=== PATIENT | female | born 1990 | race Caucasian/White ===

== ENCOUNTER 2020-05-27 09:00 | Inpatient (IN) | payer BC ==
[2020-06-04 15:23] VITALS: BMI 27.0
--- NOTE | 2020-06-05 11:03 | HP ---
HISTORY AND PHYSICAL This is a 30-year-old 0, who presents with a history of bilateral ovarian cysts, likely endometriomas. She received a depo Lupron injections x3; however, the cysts have remained and not decreased in size. She has occasional crampy lower pelvic pain and fullness, but otherwise review of systems is negative. She presents today for exploratory laparotomy, bilateral ovarian cystectomy. My plan is to use Interceed to aid in ovarian healing and prevention of scar tissue. PAST MEDICAL HISTORY: Significant for anemia. PAST SURGICAL HISTORY: Left knee surgery 2019, melanoma excision in 2019. Waldo teeth extracted. CURRENT MEDICATIONS: Ibuprofen 800 mg tablets as needed. Depo-Lupron x3. ALLERGIES: None known. FAMILY HISTORY: Significant for hypertension, polycystic ovaries, uterine cancer, melanoma, breast cancer. 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 Patient is single. PHYSICAL EXAM: Patient is 5 foot 7.75 inches, 172 pounds, BMI 26,. 99% O2 saturation. HEENT: Exam reveals good dentition, no thyromegaly, no cervical lymphadenopathy. Breasts are bilaterally symmetric, with no skin changes. No nipple discharge or axillary adenopathy. No discernible lesions or masses. CHEST: Clear to auscultation in all baker, anteriorly and posteriorly. CARDIAC: Exam reveals regular rate and rhythm with no murmur, click, or rub. ABDOMEN: Soft and nontender, with fullness, bilateral lower quadrants. No rebound or guarding. There are active bowel sounds. No CVA tenderness. EXTREMITIES: Reveal no edema, good peripheral pulses, normal range of motion. Pelvic exam reveals a fullness in the right adnexal region consistent with 6.06 cm cyst, with mild tenderness in the left lower quadrant as well. Uterus is small, mobile, anteverted, anteflexed, within normal limits. Rectal exam reveals fit negative stool, good sphincter tone, no masses. IMPRESSION: Bilateral complex ovarian cysts, right measuring 6.06 cm composite, left measuring 3.18 cm composite, both with internal echoes and septation despite Depo-Lupron injections x3. Possible endometrioma, possible dermoid cyst. PLAN: We will proceed with exploratory laparotomy and bilateral ovarian cystectomies. Patient does consent to oophorectomy if necessary; however, my intention would be to remove the cyst and repair the ovarian cortex bilaterally. We will use Interceed as well. The risks of surgery including bleeding, infection, perforation or damage to bowel, bladder, ureters, blood vessels are all discussed. The risk of anesthesia, aspiration, or even have also been reviewed. All questions answered. MMODL / IJN: [id number] /
[2020-06-10] MEDS ORDERED: SCOPOLAMINE 1.5MG/72HR PATCH TRANSDERM ONE (05:40)
[2020-06-10] MEDS ORDERED: ONDANSETRON 4 MG/2 ML VIAL IVP ONE (05:40)
[2020-06-10] MEDS ORDERED: MIDAZOLAM 2 MG/2 ML VIAL IV PRN (05:40)
[2020-06-10] MEDS ORDERED: DEXAMETHASONE SOD PHOSPHATE 10 MG/ML 1 ML VIAL IV ONE (05:40)
[2020-06-10] MEDS ORDERED: LIDOCAINE 1% (10MG/ML) FOR IV START INTRADERMA ONE (08:31)
[2020-06-10] MEDS: LACTATED RINGERS 1,000 ML IV SCH (08:33)
[2020-06-10] MEDS ORDERED: MIDAZOLAM 2 MG/2 ML VIAL ONE (09:39)
[2020-06-10] MEDS ORDERED: fentaNYL (PF) 50 MCG/ML 2 ML AMP ONE (09:39)
[2020-06-10] MEDS ORDERED: HYDROmorphone (PF) 1 MG/ML ONE (09:39)
[2020-06-10] MEDS ORDERED: GLYCOPYRROLATE 0.2 MG/ML 2 ML VIAL ONE (09:39)
[2020-06-10] MEDS ORDERED: SUCCINYLCHOLINE CHLORIDE 100 MG/5 ML SYR IV ONE (09:39)
[2020-06-10] MEDS ORDERED: LIDOCAINE 1% INJ 10MG/ML (20 ML MDV) ONE (09:39)
[2020-06-10] MEDS ORDERED: ROCURONIUM 10 MG/ML (10 ML VIAL) IV ONE (09:39)
[2020-06-10] MEDS ORDERED: PROPOFOL 10 MG/ML 20 ML VIAL IV ONE (09:39)
[2020-06-10] MEDS ORDERED: NEOSTIGMINE 1 MG/ML 10 ML VIAL ONE (09:39)
[2020-06-10] MEDS ORDERED: CELLULOSE,OXIDIZED 1 EACH EACH MISCELLANE ONE (10:26)
[2020-06-10] MEDS ORDERED: LACTATED RINGERS 1,000 ML IV ONE (10:27)
[2020-06-10] MEDS ORDERED: metroNIDAZOLE-NS PMX 500 MG in SALINE 1 100ML.BAG IVPB STA (10:51)
[2020-06-10] MEDS ORDERED: ACETAMINOPHEN IV (For NPO) 1,000 MG in EMPTY BAG 1 BAG IVPB STA (10:51)
[2020-06-10] MEDS: HYDROmorphone 0.5 MG/0.5 ML SYRINGE IVP PRN ×5 (11:19→12:05)
[2020-06-10] MEDS ORDERED: diphenhydrAMINE 50 MG/ML 1 ML VIAL IVP PRN (11:26)
[2020-06-10] MEDS ORDERED: Acetaminophen-Codeine 300-30mg TAB PO PRN (11:26)
[2020-06-10] MEDS ORDERED: SIMETHICONE 80 MG CHEWABLE PO PRN (11:26)
[2020-06-10] MEDS ORDERED: IBUPROFEN 600 MG TAB PO PRN (11:26)
[2020-06-10] MEDS ORDERED: ONDANSETRON 4 MG/2 ML VIAL IVP PRN (11:26)
[2020-06-10] MEDS ORDERED: METOCLOPRAMIDE 5 MG/ML 2 ML VIAL IVP PRN (11:26)
--- NOTE | 2020-06-10 11:26 | P.OP ---
Date of Procedure: 06/10/20 Preoperative Diagnosis: Bilateral complex ovarian masses Postoperative Diagnosis: Bilateral pelvic endometriomas, diffuse pelvic and abdominal endometriosis, diffuse abdominal and pelvic adhesions. Procedure(s) Performed: Exploratory laparotomy, excision right endometrioma, cautery left endometrioma, reconstruction right ovary, adhesio lysis Anesthesia: JERONIMO Surgeon: Meri Doss Alemite Operator #1: Nalini Tam Estimated Blood Loss (ml): 100 IV fluids (ml): 900 Urine output (ml): 100 Pathology: other (Right ovarian endometrioma) Condition: stable Disposition: PACU Operative Findings: Diffuse abdominal and pelvic endometriosis, including endometriotic implants on the small bowel and appendix. Diffuse pelvic adhesions. Large 6-8 cm complex right endometrioma, smaller left ovarian endometrioma. Description of Procedure: Patient is brought to the operating room where a general anesthetic is administered without difficulty. Antibiotics were given prophylactically. The appropriate timeout was performed to assure proper patient and procedural identification. Urine hCG is negative. Patient is placed in the dorsal supine position in the abdomen is prepped and draped in usual sterile fashion, Membreno catheter placed to direct drainage. A low transverse skin incision is made in this is carried down to the subcutaneous tissue which is approximately 2 cm deep. Fascia is isolated, scored, extended bilaterally with curved Wallace scissors. Peritoneum is next identified and incised, there is no bowel or bladder involvement. Abdominal washings are taken and set aside. The O'Jeff- O'Melgar retractors placed in the abdomen is gently packed with sterile sponges. There is a large right 6-8 cm endometrioma noted that is tucked into the posterior cul-de-sac deep in the pelvis. This is carefully dissected with Metzenbaum scissors and DeBakey forceps. The ovarian cortex is opened with a scalpel and the endometrium is shelled out. Electrocautery is used at the base of the cortex. The ovary was reconstructed with 3-0 Vicryl suture for excellent reapproximation. The right fallopian tube appears inflamed but otherwise uninvolved. There is endometriosis noted over the surface of the uterus, along with implants on the small bowel and appendix. The left ovarian endometrioma is now identified, it is also deep in the pelvic cul-de-sac. It is mobilized with careful adhesio lysis. Electrocautery is used to debulk the endometriosis on this ovary. Hemostasis is very good. Again the tube is uninvolved, however does appear inflamed. Electrocautery is used on the superficial endometriotic implants of the uterus and bilateral pelvic sidewalls, where safe and appropriate. The pelvis is now generously irrigated with sterile saline. The pelvis is clean and dry. The ovaries are gently wrapped with Interceed and placed back into the pelvic cavity. The peritoneum was allowed to close by secondary intention. Fascia is closed in a running stitch of 3-0 Vicryl suture with over ligation in the midline. Subcutaneous tissue is irrigated, and noted to be clean and dry. It is reapproximated with 3-0 Vicryl in a running fashion. 4-0 undyed Monocryl is used subcuticularly for final skin closure. Steri-Strips and Mastisol are applied to the wound. Patient is brought back to the recovery room in stable condition with a blood pressure 128/74, pulse 93, 98% O2 saturation. She is given O firm with prior to leaving the OR.
[2020-06-10] MEDS: KETOROLAC 15 MG/ML 1 ML VIAL IVP PRN (13:41)
[2020-06-11] MEDS: LACTATED RINGERS 1,000 ML IV SCH (04:03)
[2020-06-11] MEDS: KETOROLAC 15 MG/ML 1 ML VIAL IVP PRN (04:43)
--- NOTE | 2020-06-11 07:51 | P.DS ---
Providers Date of admission: 06/10/20 07:05 Expected date of discharge: 06/11/20 Attending physician: Meri Doss Primary care physician: Stated None Hospital Course: This is a 30-year-old white female 0 who presented with bilateral complex ovarian masses. She was treated with Depo-Lupron times one. The preliminary diagnosis was that of endometriosis. Patient elected to have surgical debulking of the disease and was therefore admitted for surgery. Please see dictated history and physical for details. She underwent an exploratory laparotomy, debulking of endometriosis including right endometrioma excision, repair of the right ovary, cauterization of endometriosis on the left ovary and pelvis including uterine serosa. Endometriosis was also noted on the small bowel and appendix, please see dictated operative note for details. The ovaries were wrapped with Interceed and left in situ. This morning the patient is doing well. She is voiding, ambulate in, passing flatus without difficulty. Vital signs are stable and she is afebrile. Incision is clean and dry, intact, Steri-Strips applied. Patient is not complaining of pain, and overall is judged to be in very good condition for discharge home. She will follow-up with me in the office in 2 weeks. I have reminded her no intercourse, tampons or douching. She will use [id number] Advil or Aleve, or Motrin as needed for pain. She will call with any fevers shakes or chills, foul smelling or copious lochia, with the passage of large blood clots, with any pain not alleviated by [id number] products, or indeed with any concerns. My plan would be for an additional Depo-Lupron shot to clean out the residual endometriosis noted intraoperatively. We will attempt to arrange this Assessment: Doing well postoperative day #1 Patient Condition at Discharge: Good Plan - Discharge Summary Discharge Rx Participant: No New Discharge Prescriptions: No Action Cholecalciferol [Vitamin D3 (25 Mcg = 1000 Iu)] 1,000 unit PO DAILY Ascorbic Acid [Vitamin C] 500 mg PO DAILY Multivitamins, Thera [Multivitamin (formulary)] 1 tab PO DAILY Discharge Medication List Ascorbic Acid [Vitamin C] 500 mg PO DAILY 06/04/20 [History] Cholecalciferol [Vitamin D3 (25 Mcg = 1000 Iu)] 1,000 unit PO DAILY 06/04/20 [H istory] Multivitamins, Thera [Multivitamin (formulary)] 1 tab PO DAILY 06/04/20 [History] Follow up Appointment(s)/Referral(s): Meri Doss MD [STAFF PHYSICIAN] - 2 Weeks Discharge Disposition: HOME SELF-CARE
[2020-06-11 08:39] VITALS: BP 108/69; PULSE 70; RESP 16; TEMP 98
== END 2020-06-11 10:09 | disposition home or self-care (01) | DRG 743 ==
LOC: 2ORMAIN 06-10 07:05 → 6PED 06-10 11:18
PROVIDERS: ADMIT Obstetrics & Gynecology; ATTEND Obstetrics & Gynecology
PROC: 0U510ZZ Destruction of Left Ovary, Open Approach (ICD-10-PCS; principal; 2020-06-10 09:05)
PROC: 0DNW0ZZ Release Peritoneum, Open Approach (ICD-10-PCS; principal; 2020-06-10 09:05)
PROC: 0UB00ZZ Excision of Right Ovary, Open Approach (ICD-10-PCS; principal; 2020-06-10 09:05)
DX: N80.1 Endometriosis of ovary (principal); N80.3 Endometriosis of pelvic peritoneum; N80.5 Endometriosis of intestine; N83.202 Unspecified ovarian cyst, left side; N83.201 Unspecified ovarian cyst, right side; N73.6 Female pelvic peritoneal adhesions (postinfective); F17.210 Nicotine dependence, cigarettes, uncomplicated; Z80.49 Family history of malignant neoplasm of other genital organs; Z80.3 Family history of malignant neoplasm of breast; Z82.49 Family history of ischemic heart disease and other diseases of the circulatory system; Z80.8 Family history of malignant neoplasm of other organs or systems; Z85.820 Personal history of malignant melanoma of skin; Z91.040 Latex allergy status
CPT/HCPCS: 81025; 86850; 86900; 86901; 88305

== ENCOUNTER → 2020-06-03 | Outpatient (CLI) | payer BC ==
[2020-06-03 11:51] LABS: Basophils % (A) 1 %; Eosinophils # (A) 0.1 k/uL (0-0.7); Eosinophils % (A) 3 %; HCT 36.6 % (34.0-46.0); HGB 11.9 gm/dL (11.4-16.0); Lymphocytes # (A) 2.4 k/uL (1.0-4.8); Lymphocytes % (A) 49 %; MCH 31.2 pg (25.0-35.0); MCHC 32.6 g/dL (31.0-37.0); MCV 95.9 fL (80.0-100.0); Mean Platelet Volume 7.5; Monocytes # (A) 0.2 k/uL (0-1.0); Monocytes % (A) 4 %; Neutrophils # (A) 1.9 k/uL (1.3-7.7); Neutrophils % (A) 40 %; Platelet Count 194 k/uL (150-450); RBC 3.82 m/uL (3.80-5.40); RDW 12.6 % (11.5-15.5); WBC 4.8 k/uL (3.8-10.6)
[2020-06-03 11:52] LABS: African American GFR (CKD) >90 (>60 ml/min/1.73 sqM); Anion Gap 6 mmol/L; Blood Urea Nitrogen 12 mg/dL (7-17); Calcium 9.6 mg/dL (8.4-10.2); Carbon Dioxide 28 mmol/L (22-30); Chloride 107 mmol/L (98-107); Glucose 99 mg/dL (74-99); Non-African American GFR(CKD) >90 (>60 ml/min/1.73 sqM); Sodium 141 mmol/L (137-145)
== END | disposition home or self-care (01) ==
LOC: LABPAT 10:34
PROVIDERS: ATTEND Obstetrics & Gynecology
DX: Z01.818 Encounter for other preprocedural examination (principal); N83.202 Unspecified ovarian cyst, left side; N83.201 Unspecified ovarian cyst, right side
CPT/HCPCS: 80048; 85025; 86850; 86900; 86901; 87086

== ENCOUNTER 2021-04-16 08:40 | Emergency (ER) | payer BC ==
[2021-04-16 08:45] VITALS: RESP 18; TEMP 98.1
[2021-04-16] MEDS ORDERED: SODIUM CHLORIDE 0.9% 2,000 ML IV STA (09:27)
[2021-04-16] MEDS ORDERED: diphenhydrAMINE 50 MG/ML 1 ML VIAL IVP STA (09:27)
[2021-04-16] MEDS ORDERED: METOCLOPRAMIDE 5 MG/ML 2 ML VIAL IVP STA (09:27)
[2021-04-16 09:59] LABS: Basophils % (A) 0 %; Eosinophils % (A) 0 %; HCT 33.9 % (34.0-46.0); HGB 11.8 gm/dL (11.4-16.0); Lymphocytes # (A) 1.3 k/uL (1.0-4.8); Lymphocytes % (A) 33 %; MCH 32.2 pg (25.0-35.0); MCHC 34.7 g/dL (31.0-37.0); MCV 92.7 fL (80.0-100.0); Mean Platelet Volume 8.3; Monocytes # (A) 0.2 k/uL (0-1.0); Monocytes % (A) 4 %; Neutrophils # (A) 2.4 k/uL (1.3-7.7); Neutrophils % (A) 60 %; Platelet Count 166 k/uL (150-450); RBC 3.66 m/uL (3.80-5.40); RDW 13.2 % (11.5-15.5)
--- NOTE | 2021-04-16 10:06 | ED ---
General Adult HPI - General Chief complaint: Nausea/Vomiting/Diarrhea Stated complaint: covid+, vomiting Time Seen by Provider: 04/16/21 08:54 Source: patient, RN notes reviewed Mode of arrival: ambulatory Limitations: no limitations - History of Present Illness Initial comments: This is a 31-year-old female presents emergency Department with chief complaint of COVID-19. Patient states she is been symptomatic for 1 week. Patient states she had nausea vomiting she had some diarrhea beginning but states that she cannot keep anything down states she feels weak no difficulty breathing she's had fevers chills body aches O significant headache currently no neck pain or neck stiffness patient has only known ALLERGY to latex no medication ALLERGIES. - Related Data Previous Rx's Medication Instructions Recorded Metoclopramide [Reglan] 10 mg PO TID PRN #15 tab 04/16/21 Allergies Allergy/AdvReac Type Severity Reaction Status Date / Time latex Allergy Rash/Hives Verified 04/16/21 09:47 Review of Systems ROS Statement: Those systems with pertinent positive or pertinent negative responses have been documented in the HPI. ROS Other: All systems not noted in ROS Statement are negative. Past Medical History Past Medical History: GERD/Reflux History of Any Multi-Drug Resistant Organisms: None Reported Past Surgical History: Orthopedic Surgery Additional Past Surgical History / Comment(s): Left knee surgery, cysts removed from ovaries Past Anesthesia/Blood Transfusion Reactions: Family History of Problems w/ Anesthesia, Postoperative Nausea & Vomiting (PONV) Additional Past Anesthesia/Blood Transfusion Reaction / Comment(s): Mom had postoperative nausea. Past Psychological History: No Psychological Hx Reported Smoking Status: Former smoker Past Alcohol Use History: None Reported Past Drug Use History: Marijuana - Past Family History Mother Family Medical History: No Reported History General Exam Limitations: no limitations General appearance: alert, in no apparent distress Head exam: Present: atraumatic, normocephalic, normal inspection Eye exam: Present: normal appearance, PERRL, EOMI. Absent: scleral icterus, conjunctival injection, periorbital swelling ENT exam: Present: normal exam, mucous membranes moist Neck exam: Present: normal inspection. Absent: tenderness, meningismus, lymphadenopathy Respiratory exam: Present: normal lung sounds bilaterally. Absent: respiratory distress, wheezes, rales, rhonchi, stridor Cardiovascular Exam: Present: regular rate, normal rhythm, normal heart sounds. Absent: systolic murmur, diastolic murmur, rubs, gallop, clicks GI/Abdominal exam: Present: soft, normal bowel sounds. Absent: distended, tenderness, guarding, rebound, rigid Back exam: Absent: CVA tenderness (R), CVA tenderness (L) Neurological exam: Present: alert Skin exam: Present: warm, dry, intact, normal color. Absent: rash Course Vital Signs 04/16/21 08:41 Temperature 98.1 F Pulse Rate 101 H Respiratory 18 Rate Blood Pressure 111/74 O2 Sat by Pulse 95 Oximetry Medical Decision Making - Medical Decision Making 31-year-old presented for nausea vomiting with COVID-19. Patient was given monoclonal bodies. Patient was hydrated feels greatly improved be discharged stable condition. - Lab Data Result diagrams: 04/16/21 09:37 04/16/21 09:37 Lab Results 04/16/21 04/16/21 04/16/21 Range/Units 09:37 09:37 09:37 WBC 4.0 (3.8-10.6) k/uL RBC 3.66 L (3.80-5.40) m/uL Hgb 11.8 (11.4-16.0) gm/dL Hct 33.9 L (34.0-46.0) % MCV 92.7 (80.0-100.0) fL MCH 32.2 (25.0-35.0) pg MCHC 34.7 (31.0-37.0) g/dL RDW 13.2 (11.5-15.5) % Plt Count 166 (150-450) k/uL MPV 8.3 Neutrophils % 60 % Lymphocytes % 33 % Monocytes % 4 % Eosinophils % 0 % Basophils % 0 % Neutrophils # 2.4 (1.3-7.7) k/uL Lymphocytes # 1.3 (1.0-4.8) k/uL Monocytes # 0.2 (0-1.0) k/uL Eosinophils # 0.0 (0-0.7) k/uL Basophils # 0.0 (0-0.2) k/uL Sodium (137-145) mmol/L Potassium (3.5-5.1) mmol/L Chloride (98-107) mmol/L Carbon Dioxide (22-30) mmol/L Anion Gap mmol/L BUN (7-17) mg/dL Creatinine (0.52-1.04) mg/dL Est GFR (CKD-EPI)AfAm (>60 ml/min/1.73 sqM) Est GFR (CKD-EPI)NonAf (>60 ml/min/1.73 sqM) Glucose (74-99) mg/dL Calcium (8.4-10.2) mg/dL Total Bilirubin (0.2-1.3) mg/dL AST (14-36) U/L ALT (4-34) U/L Alkaline Phosphatase (38-126) U/L Total Protein (6.3-8.2) g/dL Albumin (3.5-5.0) g/dL Lipase (23-300) U/L Urine Color Light Red Urine Appearance Cloudy H (Clear) Urine pH 7.0 (5.0-8.0) Ur Specific [place] 1.013 (1.001-1.035) Urine Protein 1+ H (Negative) Urine Glucose (UA) Negative (Negative) Urine Ketones 1+ H (Negative) Urine Blood Large H (Negative) Urine Nitrite Negative (Negative) Urine Bilirubin Negative (Negative) Urine Urobilinogen <2.0 (<2.0) mg/dL Ur Leukocyte Esterase Trace H (Negative) Urine RBC 84 H (0-5) /hpf Urine WBC 8 H (0-5) /hpf Ur Squamous Epith Cells 10 H (0-4) /hpf Amorphous Sediment Rare H (None) /hpf Urine Bacteria Rare H (None) /hpf Urine Mucus Rare H (None) /hpf Urine HCG, Qual Not Detected (Not Detectd) 04/16/21 Range/Units 09:37 WBC (3.8-10.6) k/uL RBC (3.80-5.40) m/uL Hgb (11.4-16.0) gm/dL Hct (34.0-46.0) % MCV (80.0-100.0) fL MCH (25.0-35.0) pg MCHC (31.0-37.0) g/dL RDW (11.5-15.5) % Plt Count (150-450) k/uL MPV Neutrophils % % Lymphocytes % % Monocytes % % Eosinophils % % Basophils % % Neutrophils # (1.3-7.7) k/uL Lymphocytes # (1.0-4.8) k/uL Monocytes # (0-1.0) k/uL Eosinophils # (0-0.7) k/uL Basophils # (0-0.2) k/uL Sodium 134 L (137-145) mmol/L Potassium 4.3 (3.5-5.1) mmol/L Chloride 101 (98-107) mmol/L Carbon Dioxide 24 (22-30) mmol/L Anion Gap 9 mmol/L BUN 7 (7-17) mg/dL Creatinine 0.76 (0.52-1.04) mg/dL Est GFR (CKD-EPI)AfAm >90 (>60 ml/min/1.73 sqM) Est GFR (CKD-EPI)NonAf >90 (>60 ml/min/1.73 sqM) Glucose 106 H (74-99) mg/dL Calcium 8.9 (8.4-10.2) mg/dL Total Bilirubin 0.4 (0.2-1.3) mg/dL AST 77 H (14-36) U/L ALT 53 H (4-34) U/L Alkaline Phosphatase 49 (38-126) U/L Total Protein 7.4 (6.3-8.2) g/dL Albumin 4.2 (3.5-5.0) g/dL Lipase 99 (23-300) U/L Urine Color Urine Appearance (Clear) Urine pH (5.0-8.0) Ur Specific [place] (1.001-1.035) Urine Protein (Negative) Urine Glucose (UA) (Negative) Urine Ketones (Negative) Urine Blood (Negative) Urine Nitrite (Negative) Urine Bilirubin (Negative) Urine Urobilinogen (<2.0) mg/dL Ur Leukocyte Esterase (Negative) Urine RBC (0-5) /hpf Urine WBC (0-5) /hpf Ur Squamous Epith Cells (0-4) /hpf Amorphous Sediment (None) /hpf Urine Bacteria (None) /hpf Urine Mucus (None) /hpf Urine HCG, Qual (Not Detectd) Disposition Clinical Impression: Nausea & vomiting, COVID-19 Disposition: HOME SELF-CARE Condition: Stable Instructions (If sedation given, give patient instructions): Coronavirus Disease 2019 (COVID-19) Additional Instructions: Please return to the Emergency Department if symptoms worsen or any other concerns. Prescriptions: Metoclopramide [Reglan] 10 mg PO TID PRN #15 tab PRN Reason: Nausea Is patient prescribed a controlled substance at d/c from ED?: No Referrals: Karine Howe MD [Primary Care Provider] - 1-2 days Time of Disposition: 11:59
[2021-04-16 10:18] LABS: Amorphous Sediment,Urine Rare /hpf; Appearance,Urine Cloudy (Clear); Bacteria,Urine Rare /hpf; Bilirubin,Urine Negative (Negative); Blood,Urine Large (Negative); Color,Urine Light Red; Glucose,Urine (UA) Negative (Negative); Ketones,Urine 1+ (Negative); Leukocyte Esterase,Urine Trace (Negative); Mucus,Urine Rare /hpf; Nitrite,Urine Negative (Negative); Protein,Urine 1+ (Negative); RBC,Urine 84 /hpf (0-5); Specific Gravity,Urine 1.013 (1.001-1.035); Squamous Epithelial Cell,Urine 10 /hpf (0-4); Urobilinogen,Urine <2.0 mg/dL (<2.0); WBC,Urine 8 /hpf (0-5)
[2021-04-16 10:55] LABS: ALT 53 U/L (4-34); AST 77 U/L (14-36); African American GFR (CKD) >90 (>60 ml/min/1.73 sqM); Albumin 4.2 g/dL (3.5-5.0); Alkaline Phosphatase 49 U/L (38-126); Anion Gap 9 mmol/L; Blood Urea Nitrogen 7 mg/dL (7-17); Calcium 8.9 mg/dL (8.4-10.2); Carbon Dioxide 24 mmol/L (22-30); Chloride 101 mmol/L (98-107); Glucose 106 mg/dL (74-99); Lipase 99 U/L (23-300); Non-African American GFR(CKD) >90 (>60 ml/min/1.73 sqM); Potassium 4.3 mmol/L (3.5-5.1); Sodium 134 mmol/L (137-145); Total Bilirubin 0.4 mg/dL (0.2-1.3); Total Protein 7.4 g/dL (6.3-8.2)
[2021-04-16] MEDS ORDERED: CASIRIVIMAB (REGN10933) (EUA) 600 MG, IMDEVIMAB (REGN10987) (EUA) 600 MG in SODIUM CHLO... IVPB ONE (12:00)
[2021-04-16] MEDS ORDERED: SODIUM CHLORIDE 0.9% 50 ML IVPB ONE (12:00)
[2021-04-16 13:51] VITALS: BP 102/56; PULSE 97
== END 2021-04-16 13:51 | disposition home or self-care (01) ==
LOC: EC 08:40
DX: U07.1 COVID-19 (principal); R11.2 Nausea with vomiting, unspecified; K21.9 Gastro-esophageal reflux disease without esophagitis; F12.90 Cannabis use, unspecified, uncomplicated; Z91.040 Latex allergy status; Z87.891 Personal history of nicotine dependence
CPT/HCPCS: 99284; 96365; 96375 ×2; 96361 ×2; 36415; 80053; 83690; 85025; 81001; 81025; J1200; J2765; Q0243

== ENCOUNTER → 2021-07-25 | Outpatient (CLI) | payer BC ==
[2021-07-25 11:48] LABS: Basophils % (A) 1 %; Eosinophils # (A) 0.2 k/uL (0-0.7); Eosinophils % (A) 3 %; HCT 37.3 % (34.0-46.0); HGB 11.9 gm/dL (11.4-16.0); Lymphocytes # (A) 2.2 k/uL (1.0-4.8); Lymphocytes % (A) 42 %; MCH 30.7 pg (25.0-35.0); MCHC 31.9 g/dL (31.0-37.0); MCV 96.3 fL (80.0-100.0); Mean Platelet Volume 7.9; Monocytes # (A) 0.2 k/uL (0-1.0); Monocytes % (A) 4 %; Neutrophils # (A) 2.5 k/uL (1.3-7.7); Neutrophils % (A) 47 %; Platelet Count 263 k/uL (150-450); RBC 3.87 m/uL (3.80-5.40); RDW 12.2 % (11.5-15.5); WBC 5.2 k/uL (3.8-10.6)
[2021-07-25 12:31] LABS: African American GFR (CKD) >90 (>60 ml/min/1.73 sqM); Anion Gap 11 mmol/L; Blood Urea Nitrogen 13 mg/dL (7-17); Carbon Dioxide 23 mmol/L (22-30); Chloride 107 mmol/L (98-107); Glucose 91 mg/dL (74-99); Non-African American GFR(CKD) >90 (>60 ml/min/1.73 sqM); Potassium 4.6 mmol/L (3.5-5.1); Sodium 141 mmol/L (137-145)
== END | disposition home or self-care (01) ==
LOC: LABPAT 10:02
PROVIDERS: ATTEND Obstetrics & Gynecology
DX: Z01.812 Encounter for preprocedural laboratory examination (principal); N80.9 Endometriosis, unspecified; R10.2 Pelvic and perineal pain
CPT/HCPCS: 36415; 80051; 82565; 82947; 84520; 85025; 87086

== ENCOUNTER 2021-08-04 08:38 | Inpatient (IN) | payer BC ==
--- NOTE | 2021-07-30 14:20 | HP ---
HISTORY AND PHYSICAL DATE OF SURGERY: 08/04/2021 This is a 31-year-old white female, 0, who presents with longstanding endometriosis. Patient underwent endometrioma excision bilaterally in 2019. She was subsequently treated with Depot Lupron, to which she reports she had "terrible side effects," including hot flashes, irritability and insomnia. Patient is not willing to repeat Depot Lupron shots at this time. However, the endometriosis has recurred. Patient has pain 8/10 in the left pelvis with sonographic evidence of a 6.6 cm complex left ovarian cyst consistent with endometrioma. She has 4/10 pain in the right pelvis with a 3.2 cm complex right ovarian cyst. We discussed oophorectomy, which I am not recommending secondary to the patient's young age, and because she has not yet had childbearing and desires motherhood. She is electing to therefore proceed with repeat exploratory laparotomy and excision of bilateral endometriomas. Second opinion has been offered and declined. PAST MEDICAL HISTORY: Significant for long-standing endometriosis, eczema and anemia. PAST SURGICAL HISTORY: Cautery of endometriosis and excision of endometriomas in 2019, left knee surgery for shattered kneecap in 2018, melanoma excision in 2019, wisdom teeth extracted. CURRENT MEDICATIONS: Clobetasol used topically for eczema, multivitamin daily,. ALLERGIES: NONE KNOWN. FAMILY HISTORY: Significant for uterine cancer, breast cancer, melanoma, hypertension, polycystic ovaries. 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 She smokes tobacco daily, 1 to 2 cups of coffee daily, occasional social alcohol. PHYSICAL EXAMINATION: On examination, patient weighs 185 pounds, blood pressure 114/72. Height is 5 feet 7- 3/4 inches. HEENT examination is negative. Trachea midline. No obvious thyromegaly or lymphadenopathy. Chest is clear to auscultation in all baker anteriorly and posteriorly. Cardiac exam reveals a regular rate and rhythm with no murmur, click, or rub. Abdomen is soft. There is tenderness to palpation in the right and left lower quadrants with a suspected mobile mass in the right lower quadrant. No CVA tenderness. Extremities reveal no edema, good peripheral pulses, normal range of motion in all 4 extremities. On pelvic examination, the uterus is small, mobile, anteflexed. The right adnexal region does contain a 6 to 7 cm firm tender mass consistent with sonographic findings of large endometrioma. The opposite adnexa is also minimally tender. Cervix is nulliparous to palpation. IMPRESSION: Longstanding history of endometriosis with recurrence of complex right adnexal mass measuring 6 to 7 cm, and smaller left adnexal mass, consistent with bilateral endometriomas. Patient wishing surgical palliation, declining the use of any GnRH agonist medications. PLAN: We will proceed with mini laparotomy, bilateral endometrioma excision with repair of ovarian cortex as necessary. The risks of surgery, bleeding, infection, perforation or damage to bladder, bowel, blood vessels, poor wound healing, risk of anesthesia were all discussed in detail. All questions were answered. MMODL / IJN: [id number] /
[2021-07-31 13:01] VITALS: BMI 28.1
[~2021-08-04 08:38] MED LIST: DEXAMETHASONE SOD PHOSPHATE 4 MG/ML 1 ML VIAL IV ONE; HYDROmorphone 0.5 MG/0.5 ML SYRINGE IVP PRN; LACTATED RINGERS 1,000 ML IV SCH; ONDANSETRON 4 MG/2 ML VIAL IVP ONE
[2021-08-04] MEDS ORDERED: SCOPOLAMINE 1.5MG/72HR PATCH TRANSDERM ONE (09:08)
[2021-08-04] MEDS ORDERED: MIDAZOLAM 2 MG/2 ML VIAL IVP ONE (09:18)
[2021-08-04] MEDS ORDERED: fentaNYL (PF) 50 MCG/ML 5 ML AMP IVP ONE (09:18)
[2021-08-04] MEDS ORDERED: NEOSTIGMINE 1 MG/ML 10 ML VIAL ONE (09:31)
[2021-08-04] MEDS ORDERED: PROPOFOL 10 MG/ML 20 ML VIAL IV ONE (09:31)
[2021-08-04] MEDS ORDERED: fentaNYL (PF) 50 MCG/ML 2 ML AMP ONE (09:31)
[2021-08-04] MEDS ORDERED: LIDOCAINE 1% INJ 10MG/ML (20 ML MDV) ONE (09:31)
[2021-08-04] MEDS ORDERED: ROCURONIUM 10 MG/ML (5 ML VIAL) IV ONE (09:31)
[2021-08-04] MEDS ORDERED: MORPHINE SULFATE (PF) 0.3 MG/0.3 ML SYR ONE (09:31)
[2021-08-04] MEDS ORDERED: GLYCOPYRROLATE 0.2 MG/ML 2 ML VIAL ONE (09:31)
[2021-08-04] MEDS ORDERED: PHENYLEPHRINE-0.9% NACL SYG 1,000 MCG/10 ML SYRINGE ONE (09:31)
[2021-08-04] MEDS ORDERED: SUCCINYLCHOLINE CHLORIDE 100 MG/5 ML SYR IV ONE (09:31)
[2021-08-04] MEDS ORDERED: MIDAZOLAM 2 MG/2 ML VIAL ONE (09:31)
[2021-08-04] MEDS ORDERED: CELLULOSE,OXIDIZED 1 EACH EACH MISCELLANE ONE (10:15)
--- NOTE | 2021-08-04 10:33 | P.ANPRN ---
Procedure Note - Anesthesia - Epidural/Spinal Spinal Time Out Performed: Yes Date of Procedure: 08/04/21 Procedure Start Time: Procedure Stop Time: Location of Patient: PreOp Indication: Acute Post-Operative Pain, Requested by Surgeon (hiral) Sedation Type: Sedate with meaningful contact maintained Preparation: Sterile Prep Number of Attempts: 1 Position: Sitting Catheter: None Needle Guage: 25 Injectate: Other (Fentanyl 25mcg and Duramorph 300mcg.) Narrative: sterile protocol. L4-5 interspace. Blood Aspirated: No Pain Paresthesia on Injection Noted: No Events: Uneventful and Well Tolerated
[2021-08-04] MEDS ORDERED: LACTATED RINGERS 1,000 ML IV ONE (10:40)
[2021-08-04] MEDS ORDERED: KETOROLAC 15 MG/ML 1 ML VIAL IVP PRN (11:02)
[2021-08-04] MEDS ORDERED: METOCLOPRAMIDE 5 MG/ML 2 ML VIAL IVP PRN (11:02)
[2021-08-04] MEDS ORDERED: IBUPROFEN 600 MG TAB PO PRN (11:02)
[2021-08-04] MEDS ORDERED: ZOLPIDEM 5 MG TAB PO PRN (11:02)
[2021-08-04] MEDS ORDERED: ONDANSETRON 4 MG/2 ML VIAL IVP PRN (11:02)
[2021-08-04] MEDS ORDERED: SIMETHICONE 80 MG CHEWABLE PO PRN (11:02)
--- NOTE | 2021-08-04 11:02 | P.OP ---
Date of Procedure: 08/04/21 Preoperative Diagnosis: Recurrent Bilateral pelvic endometriomas, severe left pelvic pain Postoperative Diagnosis: Same, dense pelvic adhesions, distorted inflamed left fallopian tube with clubbed fimbria Procedure(s) Performed: Left salpingo-oophorectomy, excision right endometrioma, adhesio lysis Anesthesia: SUHASA Surgeon: Meri Doss Manager #1: Patirce Russo Estimated Blood Loss (ml): 75 IV fluids (ml): 800 Urine output (ml): 100 Pathology: other (Left tube and ovary) Condition: stable Disposition: PACU Operative Findings: Intraoperatively there were dense pelvic adhesions noted. The left fallopian tube was clubbed, inflamed, distorted such that I was concerned about the eventuality of a left ectopic . The right ovary after excision of endometrioma appeared more normal, right fallopian tube inflamed but otherwise with reasonably normal morphology. Description of Procedure: Patient was brought to the operating suite after a negative test and negative cover test were confirmed. She's placed in the dorsal supine position after placement of Membreno catheter. The abdomen is prepped and draped in the usual sterile fashion. Spinal with Duramorph was given preoperatively. The appropriate timeout is performed to assure proper patient and procedural identification. Antibiotics are given. A repeat low transverse abdominal incision is made. This is carried down through the fascia which is isolated, scored, and extended bilaterally with curved Wallace scissors. Peritoneum is next identified and incised, there is no bowel or bladder involvement. The O'Jeff-O'Melgar retractor is placed. The left pelvic endometrioma is approximate 6-7 cm in diameter. The left fallopian tube is draped over the ovary, fimbriated ends blunted, the left fallopian tube appeared very abnormal and morphology. My concern was for an eventual ectopic on the left. For this reason, the left ovary and tube were removed. This is done with Ana clamps along the base of the vasculature and infundibulopelvic ligament. Care is taken to preserve the left ureter. 0 Vicryl suture is used in a Patsy stitch, the pedicles flashed and retied for excellent hemostasis. At this time attention is drawn to the right hemipelvis. There is an approximately 2-3 cm right ovarian endometrioma that is opened and emptied. The base of the ovarian cortex is cauterized with electrocautery. The right ovary otherwise appeared reasonably normal to inspection, hemostasis was excellent, and therefore the right ovary was gently wrapped with Interceed. The pelvis was generously irrigated, noted to be surgical's note was placed deep in the cul-de-sac to help prevent further adhesion formation. The peritoneum is allowed to close by secondary intention. The fascia is closed in a running stitch of 0 Vicryl with over ligation in the midline. Subcutaneous tissue is irrigated, clean and dry, reapproximated with 3-0 Vicryl in a running stitch. 4-0 undyed Monocryl is used for final skin closure. Total estimated blood loss 75 mL's. Membreno is noted to be draining clear urine. Steri-Strips and Mastisol are applied to the wound. Patient is brought back to recovery room in very good condition with stable vital signs including blood pressure 123/73, pulse 96, 99% O2 saturation. Total fluid replacement 800 mL's.
[2021-08-04] MEDS: MORPHINE SULFATE 2 MG/ML SYRINGE IVP PRN ×2 (13:06→20:01)
[2021-08-04] MEDS: diphenhydrAMINE 50 MG/ML 1 ML VIAL IVP PRN ×2 (15:32→23:22)
[2021-08-04 15:52] VITALS: RESP 16
[2021-08-04] MEDS: KETOROLAC 30 MG/ML 1 ML VIAL IVP PRN ×2 (17:43→23:21)
[2021-08-05] MEDS: KETOROLAC 30 MG/ML 1 ML VIAL IVP PRN (07:24)
--- NOTE | 2021-08-05 08:08 | P.DS ---
Providers Date of admission: 08/04/21 08:38 Expected date of discharge: 08/05/21 Attending physician: Meri Doss Primary care physician: [facility] Course: This is a 31-year-old female who presented with bilateral endometriomas, and severe left lower quadrant pain. She has a long-standing history of endometriosis. Please see dictated history and physical for details. Exploratory laparotomy was performed yesterday. I performed a left salpingo- oophorectomy due to the severe distortion and clubbing of the left fallopian tube. There were a large amount of adhesions, I was not able to dissect the tube from the ovary. The right endometrioma was removed, the base cauterized, and the ovary wrapped with Interceed. Please see my dictated operative note for details. This 20 the patient is doing very well. Her left lower quadrant pain is gone. She denies back pain. She is tolerating regular food and is passing flatus. The incision is clean and dry, intact, Steri-Strips applied. There are active bowel sounds. Vital signs have remained stable. Patient is judged to be in very good condition for discharge home. I will see her in the office in 2 weeks and at that time we will consider the medication [place]. In the meantime I have reminded her no heavy lifting, no intercourse, no driving for 2 weeks. She will use Advil or Aleve, or ibuprofen [id number] as needed for pain and alternate this with acetaminophen as needed. She will call with any fevers shakes or chills, foul smelling vaginal drainage, with any incisional issues, with any pain not alleviated by [id number] products, or indeed with any concerns. Assessment: Doing well first postoperative day Patient Condition at Discharge: Good Plan - Discharge Summary Discharge Rx Participant: No New Discharge Prescriptions: No Action Multivitamin [Multivitamins Adult Gummies] 1 tab PO DAILY Cholecalciferol (Vitamin D3) [Vitamin D3 (125 MCG = 5,000 IU)] 1 tab PO DAILY Ascorbic Acid [Vitamin C] 1 tab PO DAILY Discharge Medication List Ascorbic Acid [Vitamin C] 1 tab PO DAILY 08/04/21 [History] Cholecalciferol (Vitamin D3) [Vitamin D3 (125 MCG = 5,000 IU)] 1 tab PO DAILY 08/04/21 [History] Multivitamin [Multivitamins Adult Gummies] 1 tab PO DAILY 08/04/21 [History] Follow up Appointment(s)/Referral(s): Meri Doss MD [STAFF PHYSICIAN] - 2 Weeks Patient Instructions/Handouts: *Surgery [facility] - Scopalamine Patch Instructions
[2021-08-05 08:18] VITALS: BP 105/64; PULSE 69; TEMP 97.7
--- NOTE | 2021-08-05 10:51 | P.PN ---
Progress Note - Text Progress Note Date: 08/05/21 Postoperative day 1 status post left salpingectomy, lysis of adhesions, under g eneral endotracheal anesthesia, and intrathecal morphine given for postoperative analgesia, patient doing well, there is no anesthesia related complications, Patient had no headache, vital signs stable , Assessment and plan= postop day 1 status post , doing well there is no anesthesia related complication.
== END 2021-08-05 10:50 | disposition home or self-care (01) | DRG 743 ==
LOC: 2ORMAIN 08:38 → 4FBP 10:57 → EDSTATUS 11:00
PROVIDERS: ADMIT Obstetrics & Gynecology; ATTEND Obstetrics & Gynecology
PROC: 0UT60ZZ Resection of Left Fallopian Tube, Open Approach (ICD-10-PCS; 2021-08-04)
PROC: 0DNW0ZZ Release Peritoneum, Open Approach (ICD-10-PCS; 2021-08-04)
PROC: 0UT10ZZ Resection of Left Ovary, Open Approach (ICD-10-PCS; principal; 2021-08-04 09:30)
DX: N80.1 Endometriosis of ovary (principal); F17.210 Nicotine dependence, cigarettes, uncomplicated; G47.00 Insomnia, unspecified; Z20.822 Contact with and (suspected) exposure to COVID-19; L30.9 Dermatitis, unspecified; D64.9 Anemia, unspecified; N73.6 Female pelvic peritoneal adhesions (postinfective); N95.1 Menopausal and female climacteric states; Z85.820 Personal history of malignant melanoma of skin; Z91.040 Latex allergy status
CPT/HCPCS: 81025; 86850; 86900; 86901; 87635; 88305